=== PATIENT | male | born 1955 | race Caucasian/White ===

== ENCOUNTER 2017-02-04 12:17 | Inpatient (IN) | payer OTHER ==
[~2017-02-04] VITALS: Ht 170.2 cm; Wt 64.3 kg
[2017-02-04] MEDS ORDERED: APIX5TAB PO (12:43)
[2017-02-04] MEDS ORDERED: ASPI-621 PO (12:43)
[2017-02-04] MEDS ORDERED: RED600CA2 PO (12:57)
[2017-02-04] MEDS ORDERED: MULT-204 PO (12:57)
[2017-02-04] MEDS ORDERED: SODIUM CHLORIDE FLUSH 10ML SYR IVF ONE (13:00)
[2017-02-04 13:35] LABS: ASPARTATE AMINO TRANSFERASE 25 U/L (15-37); BLOOD UREA NITROGEN 17 mg/dL (7-18)
[2017-02-04 13:36] LABS: IS PT STATUS REG ER OR PRE ER? YES
[2017-02-04] MEDS ORDERED: ASPIRIN 81 MG TABLET CHEW ONE (14:20)
[2017-02-04] MEDS ORDERED: ASPIRIN 81 MG TABLET CHEW PO ONE (14:30)
[2017-02-04] MEDS ORDERED: SODIUM CHLORIDE FLUSH 10ML SYR IVF PRN (15:30)
[2017-02-04] MEDS ORDERED: POLYETHYLENE GLYCOL 17 GM PACKET PO PRN (17:00)
[2017-02-04] MEDS ORDERED: BISACODYL 10 MG SUPP PR PRN (17:00)
[2017-02-04] MEDS ORDERED: ONDANSETRON ODT 4 MG PO PRN (17:00)
[2017-02-04] MEDS ORDERED: ACETAMINOPHEN 325 MG TABLET PO PRN (17:00)
[2017-02-04 17:15] LABS: C-REACTIVE PROTEIN, QUANT < 0.02 mg/dL (0.02-0.49)
[2017-02-04] MEDS ORDERED: ASPIRIN 81 MG TABLET EC PO ONE (17:18)
[2017-02-04] MEDS: ENOXAPARIN 40 MG/0.4 ML SQ SCH (17:49)
[2017-02-04 19:58] VITALS: BP 108/66
[2017-02-04] MEDS ORDERED: APIXABAN 5 MG TABLET PO SCH (21:00)
[2017-02-04] MEDS ORDERED: DOCUSATE 100 MG CAPSULE PO PRN (21:00)
[2017-02-04] MEDS: ATORVASTATIN 40 MG TABLET PO SCH (21:00)
[2017-02-05 05:13] VITALS: BP 107/70
[2017-02-05] MEDS ORDERED: ASPIRIN 325 MG TABLET EC PO SCH (06:00)
[2017-02-05] MEDS ORDERED: ASPIRIN 81 MG TABLET EC PO SCH (06:00)
[2017-02-05 06:42] LABS: BLOOD UREA NITROGEN 17 mg/dL (7-18)
[2017-02-05 07:05] VITALS: BP 103/67
[2017-02-05 14:20] VITALS: BP 117/81
[2017-02-05] MEDS ORDERED: CLOPIDOGREL 75 MG TABLET PO ONE (17:30)
[2017-02-05] MEDS: ENOXAPARIN 40 MG/0.4 ML SQ SCH (17:56)
[2017-02-05 19:12] VITALS: BP 121/77
[2017-02-05] MEDS: ATORVASTATIN 40 MG TABLET PO SCH (21:24)
[2017-02-06 01:55] VITALS: BP 120/72
[2017-02-06 07:05] VITALS: BP 119/82
[2017-02-06] MEDS ORDERED: CLOPIDOGREL 75 MG TABLET PO SCH (09:00)
[2017-02-06 14:59] VITALS: BP 125/86
[2017-02-06] MEDS ORDERED: CLOP75TA PO (15:07)
[2017-02-06] MEDS ORDERED: ATOR40TA78 PO (15:07)
[2017-02-10 13:14] LABS: RHEUMATOID FACTOR SCREEN NEGATIVE (NEGATIVE)
[2017-02-10 15:23] LABS: ANA SCREEN NEGATIVE (Negative)
== END 2017-02-06 15:51 | disposition home or self-care (01) | DRG 66 ==
LOC: ED 13:53 → EDIP 15:22 → 4WST 17:10
DX: I63.9 Cerebral infarction, unspecified (principal); I25.10 Atherosclerotic heart disease of native coronary artery without angina pectoris; Z86.711 Personal history of pulmonary embolism; Z82.49 Family history of ischemic heart disease and other diseases of the circulatory system
CPT/HCPCS: 36415; 70450; 70544; 70547; 70551; 71020; 80048; 80053; 80061; 81003; 82140; 82607; 84443; 84484; 85025; 85610; 85651; 85730; 86038; 86140; 86430; 93005; 93306; 93880; 99285; J1650

== ENCOUNTER 2017-03-18 12:35 | Day surgery (SDC) | payer OTHER ==
[~2017-03-18 12:35] MED LIST: APIX5TAB PO; ASPI-621 PO; ATOR40TA78 PO; CLOP75TA PO; LIDOCAINE 2%, 20ML ONE; MULT-204 PO; RED600CA2 PO
[2017-03-18] MEDS ORDERED: LIDOCAINE 2%, 20ML SQ PRN (13:30)
== END 2017-03-18 13:20 | disposition home or self-care (01) ==
LOC: CACL 12:35
PROVIDERS: ATTEND Internal Medicine Cardiovascular Disease
DX: I63.8 Other cerebral infarction (principal)
CPT/HCPCS: 33282; C1764; J3490